=== PATIENT | female | born 1995 | race Caucasian/White ===

== ENCOUNTER 2019-11-07 12:43 | Outpatient (CLI) | payer OTHER ==
--- NOTE | 2019-11-07 13:28 | CT ---
CT lumbar spine noncontrast HISTORY: Low back pain. Radiculopathy. Injury. FINDINGS: Vertebral body heights and alignment are maintained. No acute fracture or dislocation evide nt. There are 5 lumbar type vertebrae. At the L5-S1 level, there is prominent broad-based bulging of the intervertebral disc, greater to the right of midline, with effacement of the ventral aspect of the thecal sac and origin of the right S1 nerve root. Neural foramina are patent. Central canal and neural foramina of the other lumbar levels are patent. IMPRESSION : Posterior and right posterolateral disc bulge at the lumbosacral junction, slightly effacing the thec al sac and right S1 nerve root origin. Clinical correlation regarding the right S1 dermatome is required.
== END 2019-11-07 12:44 | disposition home or self-care (01) ==
LOC: TBSIIMAG 12:43
PROVIDERS: ATTEND Neurological Surgery
DX: M54.5 Low back pain (principal); M51.9 Unspecified thoracic, thoracolumbar and lumbosacral intervertebral disc disorder
CPT/HCPCS: 72131